=== PATIENT | female | born 1965 | race Caucasian/White ===

== ENCOUNTER 2019-03-26 22:06 | Inpatient (IN) | payer MEDICAID, OTHER ==
[~2019-03-26] VITALS: Ht 167.6 cm; Wt 74.8 kg
[2019-03-26] MEDS ORDERED: SODIUM CHLORIDE 0.9% 1,000 ML IV ONE (22:22)
[2019-03-26] MEDS ORDERED: ONDANSETRON HCL 4MG/2ML INJ IV STA (22:22)
[2019-03-26] MEDS ORDERED: LEVETIRACETAM 1000MG/100ML 100 ML IV ONE (22:30)
[2019-03-26 23:58] LABS: BASOPHILS % 0.3 % (0.0-2.0); EOSINOPHILS % 0.2 % (0.0-5.0); HEMATOCRIT. 34.2 % (36.0-48.0); HEMOGLOBIN. 11.5 g/dL (12.0-16.0); LYMPHOCYTES % 12.3 % (20.0-50.0); MEAN CORPUSCULAR HEMOGLOBIN 32.2 pg (28.0-32.0); MEAN CORPUSCULAR VOLUME 95.3 fL (81.0-99.0); MEAN PLATELET VOLUME 8.8 fl (7.4-10.4); MONOCYTES % 7.2 % (2.0-8.0); PLATELET 230 x1000/uL (130-400); RED BLOOD CELL COUNT 3.59 mill/uL (4.2-5.4); RED CELL DISTRIBUTION WIDTH 12.2 % (11.6-14.6)
[2019-03-27 00:01] LABS: CHLORIDE 109 mEq/L (98-107)
[2019-03-27 00:03] LABS: PROTHROMBIN TIME 10.5 sec (9.6-11.0)
[2019-03-27 00:06] LABS: ETHANOL BLOOD < 10 mg/dL
[2019-03-27] MEDS ORDERED: LORAZEPAM 2MG/ML CPJ IV ONE (07:45)
[2019-03-27] MEDS ORDERED: SODIUM CHLORIDE 0.9% 500 ML IV ONE (07:59)
[2019-03-27] MEDS ORDERED: LEVETIRACETAM 500MG PREMIX 100 ML IV ONE (08:00)
[2019-03-27] MEDS ORDERED: MAGNESIUM/ALUMINUM HYDROXIDE/SIMETHICONE 30ML UDC PO PRN (10:30)
[2019-03-27] MEDS ORDERED: ONDANSETRON HCL 4MG/2ML INJ IV PRN (10:30)
[2019-03-27] MEDS ORDERED: GUAIFENESIN 200MG/10ML SUGAR FREE UDC PO PRN (10:30)
[2019-03-27] MEDS ORDERED: CLONIDINE 0.1MG TABLET PO PRN (10:30)
[2019-03-27] MEDS ORDERED: NITROGLYCERIN 0.4MG TABLET SL SL PRN (10:30)
[2019-03-27] MEDS ORDERED: POTASSIUM CHLORIDE 20MEQ TABLET SR PO NR (10:30)
[2019-03-27] MEDS ORDERED: DOCUSATE SODIUM 100MG CAPSULE PO PRN (10:30)
[2019-03-27] MEDS ORDERED: ACETAMINOPHEN 325MG TABLET PO PRN (10:30)
[2019-03-27] MEDS ORDERED: ZOLPIDEM TARTRATE 5MG TABLET PO PRN (10:30)
[2019-03-27] MEDS ORDERED: LORAZEPAM 2MG/ML CPJ IV PRN (10:30)
[2019-03-27] MEDS ORDERED: KETOROLAC 15MG/ML VIAL IV PRN (10:30)
[2019-03-27] MEDS ORDERED: IPRATROPIUM/ALBUTEROL 0.5-3(2.5)MG/3ML NEB NEB PRN (10:30)
[2019-03-27] MEDS: ENOXAPARIN 40MG/0.4ML SYR SUBCUT SCH (11:07)
[2019-03-27 11:11] LABS: *AMPHETAMINES SCREEN URINE NEGATIVE (NEGATIVE); *BARBITURATES SCREEN URINE NEGATIVE (NEGATIVE); *BENZODIAZEPINES SCREEN URINE NEGATIVE (NEGATIVE); *COCAINE SCREEN URINE NEGATIVE (NEGATIVE); METHADONE URINE SCREEN NEGATIVE (NEGATIVE); OPIATES URINE SCREEN NEGATIVE (NEGATIVE)
[2019-03-27 11:12] LABS: CANNABINOID URINE SCREEN NEGATIVE (NEGATIVE); PHENCYCLIDINE URINE SCREEN NEGATIVE (NEGATIVE)
[2019-03-27 12:04] LABS: CHLORIDE 113 mEq/L (98-107)
[2019-03-27 12:11] LABS: LDL CHOLESTEROL 92 mg/dL (5-100)
[2019-03-27 12:13] LABS: HDL CHOLESTEROL 47 mg/dL (40-59)
[2019-03-27 16:00] VITALS: BP 135/78
[2019-03-27 18:25] VITALS: BP 112/70
[2019-03-27 18:32] VITALS: BP 112/70
[2019-03-27 20:00] VITALS: BP 121/79
[2019-03-27] MEDS: FAMOTIDINE 20MG TABLET PO SCH (20:58)
[2019-03-27] MEDS: LEVETIRACETAM 500MG TABLET PO SCH (20:58)
[2019-03-28] VITALS: BP 108/75
[2019-03-28 04:00] VITALS: BP 111/74
[2019-03-28 08:00] VITALS: BP 115/73
[2019-03-28] MEDS ORDERED: ASPIRIN 325MG EC TABLET PO SCH (09:00)
[2019-03-28] MEDS: LEVETIRACETAM 500MG TABLET PO SCH (09:13)
[2019-03-28] MEDS: ENOXAPARIN 40MG/0.4ML SYR SUBCUT SCH (09:13)
[2019-03-28] MEDS: FAMOTIDINE 20MG TABLET PO SCH (09:14)
[2019-03-28 12:00] VITALS: BP 122/71
[2019-03-28 12:43] VITALS: BP 122/71
== END 2019-03-28 15:51 | disposition home or self-care (01) | DRG 52 ==
LOC: ER 22:06 → 5WST 03-27 08:28 → EDBEDREQ 03-27 08:29 → ENRESERV 03-27 13:13
PROVIDERS: ADMIT Internal Medicine; ATTEND Internal Medicine
DX: G92 Toxic encephalopathy (principal); E83.51 Hypocalcemia; G93.89 Other specified disorders of brain; E87.6 Hypokalemia; G40.909 Epilepsy, unspecified, not intractable, without status epilepticus; R32 Unspecified urinary incontinence; Z59.0 Homelessness; Z79.899 Other long term (current) drug therapy
CPT/HCPCS: 36415; 70486; 80053; 80061; 80305; 80320; 82962; 83036; 85025; 96374; 99285; J1650; J1953; J2060; J2405; J7030; G0480